=== PATIENT | female | born 2000 | race Caucasian/White ===

== ENCOUNTER 2019-04-25 06:20 | Day surgery (SDC) | payer BC, MEDICAID ==
[2019-04-24 16:07] LABS: BASOPHILS 0.2 % (0-2); EOSINOPHILS 0.5 % (0-7); HEMATOCRIT 41.1 % (36.0-48.0); HEMOGLOBIN 13.5 g/dL (12-16); IMMATURE GRANULOCYTES 0.1 % (0-5); LYMPHOCYTES 23.5 % (15-50); MCH 28.4 pg (26.0-34.0); MCHC 32.8 g/dL (31.0-37.0); MCV 86.3 fL (80.0-100.0); MONOCYTES 5.7 % (2-11); PLATELET COUNT 225 10x3/uL (130-400); RBC 4.76 10x6/uL (4.00-5.40); RDW 12.6 % (11.5-14.5); WBC 10.4 10x3/uL (4.8-10.8)
[2019-04-24 16:27] LABS: CALC OSMOLALITY 279 mosm/kg (275-300); CALCIUM 9.1 mg/dL (8.5-10.1); CARBON DIOXIDE 26.5 mmol/L (21.0-32.0); CHLORIDE - SERUM 106 mmol/L (98-107); CREATININE - SERUM 0.9 mg/dL (0.6-1.3); GLUCOSE 103 mg/dL (74-106); POTASSIUM - SERUM 3.8 mmol/L (3.5-5.1); SODIUM 139 mmol/L (136-145); UREA NITROGEN 17 mg/dL (7-18); eGFR NON AFRICAN AMERICAN 85 mL/min (90-120)
[~2019-04-25] VITALS: Ht 165.1 cm; Wt 78.5 kg
--- NOTE | ~2019-04-25 | OP ---
PATIENT NAME: RICHARD ELLINGTON MEDICAL RECORD: [id number] :98 LOCATION:D.OPS ADMISSION DATE: SURGEON: GERONIMO NAIK MD DATE OF OPERATION: 04/25/2019 PREOPERATIVE DIAGNOSES: 1. Biliary dyskinesia. 2. Anxiety disorder. POSTOPERATIVE DIAGNOSES: 1. Biliary dyskinesia. 2. Anxiety disorder. PROCEDURE: Laparoscopic cholecystectomy. SURGEON: Geronimo Naik MD REPORT OF PROCEDURE: The patient's abdomen was prepped and draped in sterile fashion. A cutdown was made on the superior aspect of the umbilicus, 0 Vicryls were placed in the fascia bilaterally and the fascia was incised with a 15 blade. I then bluntly entered the peritoneal cavity and placed a 12-mm Rufino port. Under direct visualization, a 5-mm trocar was placed in the epigastrium and two more 5-mm trocars were placed in the right subcostal region. The gallbladder was grasped and elevated. The cystic artery and cystic duct were dissected free and these were clipped proximally and distally and ligated in standard fashion. The gallbladder was taken off the liver bed using electrocautery and placed into a right upper quadrant. The liver bed was treated with electrocautery for any bleeding. At this point, the ports and insufflation were then removed and the gallbladder was taken out through the umbilicus. The umbilical fascia was closed with interrupted 0 Vicryls times 3. The wounds were then irrigated out with normal saline and infused with 10 mL of 0.25% Marcaine with epinephrine. The skin incisions were all closed with subcutaneous 5-0 Monocryl and dressed appropriately. COMPLICATIONS: None. CONDITION: Stable. ANESTHESIA: General endotracheal and local. BLOOD LOSS: Minimal. TRANSINT:[id number] Voice Confirmation ID: [id number] DOCUMENT ID: [id number] GERONIMO NAIK MD CC: MITRA CORDOVA MD [id number] DICTATION DATE: 04/25/19910 DRUPAL PROGRAMMER: 04/25/19 1203 [facility] 04/25/19 [facility] [address] [place] [address]
[~2019-04-25 06:20] MED LIST: BEYAZ 28 TABLE1 EACH PO; ESKALITH CR450 M1 PO; MEPROBAMATE200 MG PO; TRAZODONE HCL150 MG PO; VRAYLAR3 MG PO; ZOFRAN4 MG PO
[2019-04-25 06:58] VITALS: BP 108/70; Ht 165.1 cm; Wt 78.5 kg
[2019-04-25 07:18] LABS: HCG URINE NEGATIVE (NEGATIVE)
[2019-04-25] MEDS ORDERED: HYDROCODON-ACE1 EA10 PO (09:08)
--- NOTE | 2019-04-25 10:44 | NUR ---
1006-REC'D FROM RR.DROWSY, EASILY AROUSED WITH VERBAL STIMULI. REPORTS "DISCOMFORT" PAIN 2/10. NO NAUSEA,BANDAIDS X 4 TO ABD CDI.VSS. PARENTS AT BEDSIDE.
--- NOTE | 2019-04-25 10:46 | NUR ---
1030-TOLERATED FULL LIQUIDS,DENIES NAUSEA. VSS. BANDAIDS X 4 CDI.
--- NOTE | 2019-04-25 11:17 | NUR ---
1110-DISCHARGE CRITERIA MET. REMOVED IV FROM LEFT WRIST WITH CATH INTACT,DISPOSED INTO SHARPS. COVERED SITE WITH BANDAID. BANDAIDS TO ABD CDI. PAIN LEVEL 2/10 DESCRIBES "SORE". VSS. REVIEWED POST OPERATIVE INSTRUCTIONS WITH PT;MOTHER AT BEDSIDE. VERBALIZED UNDERSTANDING. ESCORTED OUT VIA W/C WITH FATHER AWAITING TO DRIVE HOME.STABLE CONDITION.
== END 2019-04-25 11:10 | disposition home or self-care (01) ==
LOC: D.OPS 06:20 → D.PAN 08:15 → D.OPS 08:15
PROVIDERS: ATTEND Surgery
DX: K82.8 Other specified diseases of gallbladder (principal); F41.9 Anxiety disorder, unspecified

== ENCOUNTER 2021-01-12 07:48 | Day surgery (SDC) | payer BC ==
[~2021-01-12] VITALS: Ht 162.6 cm; Wt 89.8 kg
[~2021-01-12 07:48] MED LIST changes: +FLUOXETINE PO; +HYDROCODON-ACE1 EA10 PO
[2021-01-12 08:13] LABS: HEMATOCRIT 39.5 % (36.0-48.0); HEMOGLOBIN 12.9 g/dL (12-16); MCH 27.1 pg (26.0-34.0); MCHC 32.8 g/dL (31.0-37.0); MCV 82.6 fL (80.0-100.0); MEAN PLATELET VOLUME 6.6 fL (7.4-10.4); RBC 4.78 10x6/uL (4.00-5.40); RDW 13.1 % (11.5-14.5)
[2021-01-12 08:33] VITALS: BP 123/76; BP 133/80; Ht 162.6 cm; Wt 89.8 kg
[2021-01-12 08:42] LABS: HCG SERUM NEGATIVE (NEGATIVE)
== END 2021-01-12 17:15 | disposition home or self-care (01) ==
LOC: D.OPS 07:48
PROVIDERS: Anesthesiology; ATTEND Obstetrics & Gynecology Maternal & Fetal Medicine
DX: N73.6 Female pelvic peritoneal adhesions (postinfective) (principal); R10.2 Pelvic and perineal pain; K21.9 Gastro-esophageal reflux disease without esophagitis